=== PATIENT | female | born 1970 | race Caucasian/White ===

== ENCOUNTER 2020-10-24 07:47 | Outpatient (CLI) | payer BC, SELFPAY ==
--- NOTE | 2020-10-24 08:00 | MM_ITS ---
WS: [id number] BILATERAL DIGITAL SCREENING MAMMOGRAPHY WITH CAD CLINICAL INFORMATION: Z12.39 - Encounter for other screening for malignant neop... HISTORY: Screening mammogram. No current complaints. COMPARISON: and TECHNIQUE: Bilateral CC and MLO views. FINDINGS: The breasts are composed of heterogeneous fibroglandular density tissue, which can limit the detectio n of small underlying mass lesions. Dense breast tissue upper outer left breast is unchanged. No susp icious mass, asymmetry, calcifications, or architectural distortion. No evidence of malignancy. MM/[place] [id number] IMPRESSION: BI-RADS: 2-Benign FOLLOW UP: 1 Year Follow-up Recommend return to annual screening mammography.
== END 2020-10-24 07:48 | disposition home or self-care (01) ==
LOC: RADSHAW 07:50
PROVIDERS: PCP Family Medicine; Visit Provider Nurse Practitioner Women's Health
DX: Z12.31 Encounter for screening mammogram for malignant neoplasm of breast (principal)
CPT/HCPCS: 77067

== ENCOUNTER → 2022-07-09 11:56 | Day surgery (SDC) | payer BC, SELFPAY ==
[2022-07-09] MEDS: iron sucrose 200 MG in sodium chloride 0.9% (100 ml) 100 ML 220 MG IV (12:10)
[2022-07-09 12:29] VITALS: BP 122/66; PULSE 76; RESP 18; TEMP 36.1; O2SAT 100
== END ==
PROVIDERS: PCP Family Medicine; Visit Provider Physician Assistant
DX: D50.9 Iron deficiency anemia, unspecified (principal)
CPT/HCPCS: 96365; J1756

== ENCOUNTER → 2022-07-16 11:53 | Day surgery (SDC) | payer BC, SELFPAY ==
[2022-07-16] MEDS: iron sucrose 200 MG in sodium chloride 0.9% (100 ml) 100 ML 220 MG IV (12:02)
[2022-07-16 12:09] VITALS: BP 124/81; PULSE 81; RESP 18; TEMP 36.2; O2SAT 100
== END ==
PROVIDERS: PCP Family Medicine; Visit Provider Physician Assistant
DX: D50.9 Iron deficiency anemia, unspecified (principal)
CPT/HCPCS: 96365; J1756

== ENCOUNTER → 2022-07-23 12:05 | Day surgery (SDC) | payer BC, SELFPAY ==
[2022-07-23] MEDS: iron sucrose 200 MG in sodium chloride 0.9% (100 ml) 100 ML 220 MG IV (12:20)
[2022-07-23 12:21] VITALS: BP 102/65; PULSE 68; RESP 18; TEMP 36.4; O2SAT 100
== END ==
PROVIDERS: PCP Family Medicine; Visit Provider Physician Assistant
DX: D50.9 Iron deficiency anemia, unspecified (principal)
CPT/HCPCS: 96365; J1756

== ENCOUNTER → 2022-07-30 12:00 | Day surgery (SDC) | payer BC, SELFPAY ==
[2022-07-30] MEDS: iron sucrose 200 MG in sodium chloride 0.9% (100 ml) 100 ML 220 MG IV (12:20)
[2022-07-30 12:22] VITALS: BP 112/76; PULSE 73; RESP 18; TEMP 36.2; O2SAT 100
== END ==
PROVIDERS: PCP Family Medicine; Visit Provider Physician Assistant
DX: D50.9 Iron deficiency anemia, unspecified (principal); Z79.899 Other long term (current) drug therapy
CPT/HCPCS: 96365; J1756

== ENCOUNTER 2022-08-02 10:13 | Day surgery (SDC) | payer BC, SELFPAY ==
[2022-08-01 13:44] VITALS: BMI 23.0
[2022-08-02] VITALS (10 sets, daily range): BP systolic 104–126; BP diastolic 66–77; PULSE 55–109; RESP 15–20; TEMP 36.4–36.7; O2SAT 96–100
--- NOTE | 2022-08-02 08:17 | W.PM.OPSFHP ---
Same Day Surgery H&P Indication for Procedure/HPI DATE OF PROCEDURE: August 02, 2022 CHIEF COMPLAINT/INDICATIONFOR SURGICAL PROCEDURE: 52 y.o. with abnormal uterine bleeding, menorrhagia, and anemia, now scheduled for hysteroscopy, endometrial sampling, possible endometrial polypectomy PREOP DIAGNOSIS: abnormal uterine bleeding PLANNED PROCEDURE: Operation Date: 08/02/22 12:00 Proposed Procedures p [Hysteroscopy with Myosure, endometrial sampling 55096, possible endometrial polypectomy 74293,N92.1(Not Applicable) - Fili Ortez MD s Poylpectomy(Not Applicable) - Fili Ortez MD Medications/Allergies* Home Medications Medication Instructions Recorded Confirmed Type iron sucrose 200 mg iron/10 mL 200 mg IV .[id number] 07/30/22 08/01/22 History intravenous solution (Venofer) Allergies/Adverse Reactions Allergy/AdvReac Type Severity Reaction Status Date / Time No Known Allergies Allergy Verified 08/02/22 10:32 Pertinent History/Comorbid Conditions* Medical History (Updated 07/22/22 @ 15:42 by Flii Ortez MD) Galactorrhea (~2017) cream colored- right nipple History of LEEP (loop electrosurgical excision procedure) of cervix complicating [facility] 02/2012--for persistent LGSIL with positive HR-HPV No pertinent past medical history Neg hx: HTN, DM, thyroid, DVT/PE PCP: Dr. Dandre Samaniego Surgical History (Updated 10/13/20 @ 15:46 by Gely Estrada APN, WHLEAH) History of colposcopy [facility] 02/2013 History of tubal ligation 01/2002: Performed at [facility] in [place], [place]. Family History (Updated 10/13/20 @ 15:11 by Anna Marie Todd LPN) Cancer Mother Leukemia Stroke Father Grandmother Denies family history of Diabetes CAD (coronary artery disease) Clotting disorder Dementia Hyperlipidemia Psychiatric illness Chronic kidney disease (CKD) Suicide Anesthesia complication Bleeding disorder Family history of premature coronary artery disease Lung disease Hypertension Pertinent Exam Findings alert, oriented x 3, clear to auscultation bilaterally and regular rate & rhythm Recommendations Surgery/Procedure today Coding Level of Care Code Acute Code for Chg Fwd Diagnoses
--- NOTE | 2022-08-02 08:52 | P.HP_ITS ---
Same Day Surgery H&P Indication for Procedure/HPI DATE OF PROCEDURE: August 02, 2022 CHIEF COMPLAINT/INDICATIONFOR SURGICAL PROCEDURE: 52 y.o. with abnormal uterine bleeding, menorrhagia PREOP DIAGNOSIS: abnormal uterine bleeding PLANNED PROCEDURE: Operation Date: 08/02/22 12:00 Proposed Procedures p [Hysteroscopy with Myosure, endometrial sampling 70614, possible endometrial polypectomy 29592,N92.1(Not Applicable) - Fili Ortez MD s Poylpectomy(Not Applicable) - Fili Ortez MD Medications/Allergies* Home Medications Medication Instructions Recorded Confirmed Type iron sucrose 200 mg iron/10 mL 200 mg IV .[id number] 07/30/22 08/01/22 History intravenous solution (Venofer) Allergies/Adverse Reactions Allergy/AdvReac Type Severity Reaction Status Date / Time No Known Allergies Allergy Verified 08/01/22 13:43 Pertinent History/Comorbid Conditions* Medical History (Updated 07/22/22 @ 15:42 by Fili Ortez MD) Galactorrhea (~2017) cream colored- right nipple History of LEEP (loop electrosurgical excision procedure) of cervix complicating [facility] 02/2012--for persistent LGSIL with positive HR-HPV No pertinent past medical history Neg hx: HTN, DM, thyroid, DVT/PE PCP: Dr. Dandre Samaniego Surgical History (Updated 10/13/20 @ 15:46 by Gely Estrada APN, UNA) History of colposcopy [facility] 02/2013 History of tubal ligation 01/2002: Performed at [facility] in [place], [place]. Family History (Updated 10/13/20 @ 15:11 by Anna Marie Todd LPN) Cancer Mother Leukemia Stroke Father Grandmother Denies family history of Diabetes CAD (coronary artery disease) Clotting disorder Dementia Hyperlipidemia Psychiatric illness Chronic kidney disease (CKD) Suicide Anesthesia complication Bleeding disorder Family history of premature coronary artery disease Lung disease Hypertension Pertinent Exam Findings alert, oriented x 3, clear to auscultation bilaterally and regular rate & rhythm awake, alert Lungs: clear Cor: RRR no m Abd: soft, nontender Recommendations Surgery/Procedure today Coding Level of Care Code Acute Code for Chg Fwd Diagnoses Time Spent (min) 20
[2022-08-02 10:39] LABS: OR HCG Qualitative Urine Negative (Negative)
[2022-08-02] MEDS: sodium chloride 0.9% 1,000 ML 30 ML IV (10:43)
--- NOTE | 2022-08-02 11:41 | W.PM.OPSUD ---
Surgery/Procedure H&P Update DATE OF PROCEDURE: August 02, 2022 DATE H&P PERFORMED: 07/17/22 CHANGES TO PREVIOUS DOCUMENTATION: none PREOP DIAGNOSIS: abnormal uterine bleeding PLANNED PROCEDURE: Operation Date: 08/02/22 12:00 Proposed Procedures p [Hysteroscopy with Myosure, endometrial sampling [address], possible endometrial polypectomy 29879,N92.1(Not Applicable) - Fili Ortez MD s Poylpectomy(Not Applicable) - Fili Ortez MD
--- NOTE | 2022-08-02 12:48 | PC.NURSE ---
Pt arrived to PACU, awake, A&Ox3. Pt denies any pain or nausea at this time. Peripad in place with scant bloody drainage noted.
--- NOTE | 2022-08-02 13:56 | P.ANESASSM_ITS ---
Pre-Anesthetic Assessment Height/Weight: Height 1.6 m Weight 58.967 kg Temp Pulse Resp BP Pulse Ox O2 Del Method 98 F 55 L 16 113/73 100 Room Air 08/02/22 13:22 08/02/22 13:41 08/02/22 13:41 08/02/22 13:41 08/02/22 13:41 08/02/22 13:41 Preop Diagnosis: abnormal uterine bleeding Operation Date: 08/02/22 12:00 Proposed Procedures p [Hysteroscopy with Myosure, endometrial sampling 30736, possible endometrial polypectomy 37278,N92.1(Not Applicable) - Fili Ortez MD s Poylpectomy(Not Applicable) - Fili Ortez MD Familial anesthetic complications: none Was Beta Lisa taken within 24 hours: N/A Was Clonidine taken within 24 hours: N/A Last intake: Intake Last Liquid Date 08/01/22 Last Liquid Time 20:00 Last Solid Date 08/01/22 Last Solid Time 20:00 Social No alcohol and No tobacco Exam alert, oriented x 3, clear to auscultation bilaterally and regular rate & rhythm Airway Submandibular: within normal limits Cervical ROM: within normal limits Mallampati: Class II Dentition: full CV/HEM Anemia Anesthetic Plan ASA status: 2 Anesthesia: General Medications/Allergies Home Medications Medication Instructions Recorded Confirmed Last Taken Type iron sucrose 200 mg iron/10 mL 200 mg IV .[id number] 07/30/22 08/01/22 07/30/22 History intravenous solution (Venofer) Allergies Allergy/AdvReac Type Severity Reaction Status Date / Time No Known Allergies Allergy Verified 08/02/22 10:32 Current Medications Generic Name Dose Route Start Last Admin Trade Name Freq PRN Reason Stop Dose Admin Sodium Chloride 1,000 mls @ 30 mls/hr 08/02/22 10:30 08/02/22 10:43 Sodium Chloride 0.9% IV 08/03/22 10:29 30 mls/hr .Q24H MARILU Administration PFSH Anesthesia Medical History Galactorrhea (~2018) cream colored- right nipple History of LEEP (loop electrosurgical excision procedure) of cervix complicating [facility] 02/2012--for persistent LGSIL with positive HR-HPV No pertinent past medical history Neg hx: HTN, DM, thyroid, DVT/PE PCP: Dr. Dandre Samaniego Surgical History History of colposcopy [facility] 02/2013 History of tubal ligation 01/2002: Performed at [facility] in [place], [place]. Family History Father Stroke Grandmother Stroke Mother Cancer Leukemia Denies family history of Diabetes CAD (coronary artery disease) Clotting disorder Dementia Hyperlipidemia Psychiatric illness Chronic kidney disease (CKD) Suicide Anesthesia complication Bleeding disorder Family history of premature coronary artery disease Lung disease Hypertension Data Anesthesia Cardiac Studies: No Data to Display
--- NOTE | 2022-08-02 15:26 | ANE.PACU2 ---
Inpatient post-anesthesia follow up: Airway intact: Yes Vital signs: Temperature 98 F Pulse Rate 55 Respiratory Rate 16 Blood Pressure 113/73 Pulse Oximetry 100 Oxygen Delivery Me thod Room Air Oxygen Flow Rate Fraction of Inspir ed Oxygen Hydration adequate: Yes Nausea and vomiting: No Pain level: 2 Mental status: Baseline
--- NOTE | 2022-08-02 19:02 | P.OP_ITS ---
Operative Report Date of procedure: August 02, 2022 Pre-op diagnosis: Preop Diagnosis abnormal uterine bleeding Post-op diagnosis: abnormal uterine bleeding normal endometrial cavity Post-op findings: uterus sounded to 8 cm normal endometrial cavity no polyps / fibroids small amount of endometrial tissue Procedure done: hysteroscopy, curettage of uterus Specimens removed/disposition: endometrial curettings Surgeon: Fili Ortez M.D. Estimated blood loss: 3 cc Complications: none Brief History: 52 year old with abnormal uterine bleeding Procedure: Informed consent signed. Patient taken to the operating room.? Anesthesia induced.? Patient was placed in dorsolithotomy position, prepped and draped for hysteroscopy.? A bivalve speculum was placed in the vagina.? The anterior lip of the cervix was grasped with a sharp-toothed tenaculum.? The cervix was serially dilated with Hegar dilators.? .? A hysteroscope was placed into the endometrial cavity.? The endometrial cavity was seen to be normal.? There were no polyps or fibroids.? There was minimal endometrial tissue.? The hysteroscope was then removed.? End ometrial curettage was done with a sharp curette.? Endometrial tissue was sent to pathology. ? The sharp-toothed tenaculum was removed.? There was no bleeding from the endometrial cavity or cervix.? The patient was then placed supine and awakened and taken to the PACU. Postop condition:? stable EBL:? none Sponge and instruments counts were normal x 2 Complications:? none
== END 2022-08-02 14:05 | disposition home or self-care (01) ==
PROVIDERS: PCP Family Medicine; Visit Provider Obstetrics & Gynecology
PROC: 0UDB8ZZ Extraction of Endometrium, Via Natural or Artificial Opening Endoscopic (ICD-10-PCS; CPT 58558; principal; 2022-08-02 12:00)
DX: N93.9 Abnormal uterine and vaginal bleeding, unspecified (principal); D64.9 Anemia, unspecified
CPT/HCPCS: 58558; 81025; 84703; 88305; J1100; J1885; J2405; J2704; J3010; J3490; J7030

== ENCOUNTER → 2022-08-06 11:53 | Day surgery (SDC) | payer BC, SELFPAY ==
[2022-08-06 12:11] VITALS: BP 102/67; PULSE 75; RESP 18; TEMP 36.6; O2SAT 100; BMI 23.0
[2022-08-06] MEDS: iron sucrose 200 MG in sodium chloride 0.9% (100 ml) 100 ML 220 MG IV (13:00)
== END ==
LOC: GILAB 11:54
PROVIDERS: PCP Family Medicine; Visit Provider Physician Assistant
DX: D50.9 Iron deficiency anemia, unspecified (principal); Z79.899 Other long term (current) drug therapy
CPT/HCPCS: 96365; J1756

== ENCOUNTER → 2022-10-11 11:16 | Outpatient (BNVA) | payer BC, SELFPAY | PROVIDERS: PCP Family Medicine; Visit Provider Obstetrics & Gynecology | DX: D64.9 Anemia, unspecified (principal) | CPT/HCPCS: 85025 ==

== ENCOUNTER 2022-12-04 10:00 | Outpatient (CLI) | payer BC, SELFPAY ==
--- NOTE | 2022-12-04 10:05 | MM_ITS ---
WS: [id number] VIEWS: MLO and CC views both breasts. 3D digital tomosynthesis is also included in this exam. Comparison made with prior exam of 06/26/2013, 12/16/2014, 06/03/2017, 11/03/2020,. Findings: Partially obscured grouped punctate microcalcifications are noted in the upper outer quadrant of the LEFT breast at mid to posterior depth. This is probably in the 2 to 3 o'clock position. No architectu ral distortion or discrete mass is visualized. Magnification compression spot imaging of the LEFT leyla ast in the CC, MLO and 90 degree lateral projections to include tomography would be indicated for fur ther work-up. There are no new findings in the RIGHT breast. The breasts are extremely dense which lo wers the sensitivity of mammography. Impression: MM/[place] [id number] BI-RADS: 0-Incomplete: Need additional imaging evaluation FOLLOW-UP: See Report This mammogram was also analyzed by the Computer Aided Detection System R2 Imag e Labor Conciliator.
== END 2022-12-04 10:01 | disposition home or self-care (01) ==
LOC: RAD 10:03 → MOBLMAM 10:04
PROVIDERS: PCP Family Medicine; Visit Provider Obstetrics & Gynecology
DX: Z12.31 Encounter for screening mammogram for malignant neoplasm of breast (principal)
CPT/HCPCS: 77063; 77067

== ENCOUNTER 2022-12-21 09:51 | Outpatient (CLI) | payer BC, SELFPAY ==
--- NOTE | 2022-12-21 10:24 | MM_ITS ---
WS: [id number] VIEWS: Compression spot imaging as well as a 90 degree lateral view of the LEFT breast to include tiki ography was obtained. Comparison made with prior exam of screening study of 12/04/2022. Findings: Compression spot imaging in the CC and MLO views as well as the 90 degree lateral projection demonstr ates several scattered round microcalcifications. No suspicious clustering of microcalcification or a rchitectural distortion was noted. No discrete suspicious mass. The LEFT breast is heterogeneously de nse which may obscure small masses. Impression: MM/[place] [id number] BI-RADS: 2-Benign finding. FOLLOW-UP: 1 Year Follow-up This mammogram was also analyzed by the Computer Aided Detection System R2 Imag e Drywaller.
== END 2022-12-21 09:52 | disposition home or self-care (01) ==
PROVIDERS: PCP Family Medicine; Visit Provider Obstetrics & Gynecology
DX: R92.8 Other abnormal and inconclusive findings on diagnostic imaging of breast (principal)
CPT/HCPCS: 77061; G0279

== ENCOUNTER → 2024-08-10 13:52 | Outpatient (BNVA) | payer BC, SELFPAY | PROVIDERS: PCP Family Medicine; Visit Provider Podiatrist Foot & Ankle Surgery | DX: M79.671 Pain in right foot (principal); M79.672 Pain in left foot; M20.11 Hallux valgus (acquired), right foot; M21.611 Bunion of right foot | CPT/HCPCS: 73630 ==

== ENCOUNTER 2024-08-17 11:35 | Outpatient (CLI) | payer BC, SELFPAY ==
--- NOTE | 2024-08-17 11:40 | MM_ITS ---
WS: [id number] BILATERAL SCREENING DIGITAL TOMOSYNTHESIS MAMMOGRAM WITH CAD HISTORY: SCREENING COMPARISON: 12/21/2022, 12/04/2022, 10/24/2020 Bilateral CC and MLO views with tomosynthesis and synthetic mammography submitted. Computer aided detection analyzed. Breast composition: The breasts are heterogeneously dense, which may obscure small masses. No suspicious masses, microcalcifications or architectural distortion. Stable asymmetries in each breast. MM/MM scr tomosynthesis [id number] IMPRESSION: BI-RADS: 2 - Benign FOLLOW UP: 1 Year Follow-up
== END 2024-08-17 11:36 | disposition home or self-care (01) ==
LOC: RAD 11:35
PROVIDERS: PCP Family Medicine; Visit Provider Family Medicine
DX: Z12.31 Encounter for screening mammogram for malignant neoplasm of breast (principal); R92.333 Mammographic heterogeneous density, bilateral breasts; N64.89 Other specified disorders of breast
CPT/HCPCS: 77063; 77067

== ENCOUNTER 2024-10-19 14:23 | Outpatient (CLI) | payer BC, SELFPAY ==
--- NOTE | 2024-10-19 14:32 | MR_ITS ---
WS: [id number] MRI CERVICAL SPINE NONCONTRAST HISTORY: CERVICALGIA, RIGHT arm pain for several months. COMPARISON: None available. Technique: Multiplanar, multisequence noncontrast imaging of the cervical spine. Straightening of the normal cervical lordosis. Slight retrolisthesis of C5 and C6. No fracture or marrow edema. Signal within the cervical cord is normal. Visualized posterior fossa is unremarkable. Craniocervical junction, C1 and C2 relationship, odontoid process and soft tissues are normal. C2-C3: Normal. C3-C4: Mild RIGHT foraminal stenosis secondary to a small osteophyte. C4-C5: Very mild facet joint arthritis. Small bilateral foraminal osteophytes. Mild LEFT foraminal stenosis. C5-C6: Mild effacement of ventral CSF, osteophytic ridging and mild facet arthritis. Mild central and foraminal stenosis. Focal disc osteophyte complex in the RIGHT foramen causing slightly greater narrowing of the RIGHT foramen. C6-C7: Mild osteophytic ridging with disc bulging and facet arthritis. Mild LEFT foraminal narrowing due to an osteophyte. C7-T1: Normal. Paraspinal soft tissue are normal. MR/MR cervical spin wo con* [id number] IMPRESSION: 1. Mild degenerative disc disease and facet arthropathy. No high-grade central stenosis. 2. C5-6: Focal RIGHT foraminal disc osteophyte complex narrowing the foramen a nd contacting the C6 nerve root. Mild central stenosis. 3. Mild RIGHT foraminal stenosis at C3-4 and mild LEFT foraminal stenosis at C 4-5 and C6-7.
== END 2024-10-19 14:24 | disposition home or self-care (01) ==
LOC: RAD 14:26
PROVIDERS: PCP Family Medicine; Visit Provider Family Medicine
DX: M47.812 Spondylosis without myelopathy or radiculopathy, cervical region (principal); M50.30 Other cervical disc degeneration, unspecified cervical region; M48.02 Spinal stenosis, cervical region; M25.78 Osteophyte, vertebrae
CPT/HCPCS: 72141

== ENCOUNTER 2025-03-12 09:11 | Day surgery (SDC) | payer BC, SELFPAY ==
[2025-03-12] VITALS (7 sets, daily range): BP systolic 95–118; BP diastolic 56–82; PULSE 62–91; RESP 15–20; TEMP 36.4–36.6; O2SAT 96–100; BMI 23.9
--- NOTE | 2025-03-12 07:10 | P.HP_ITS ---
Providers/Chief Complaint Primary Care Provider: Dandre Samaniego MD Chief Complaint: M12.611 History of Present Illness Pita Fuller is a 54 year old female presenting to clinic for surgical consult for right foot bunionectomy. Patient reports that her only request is to have surgery before the end of the year. She states that she is experiencing pain daily to right foot. Review of Systems General: Reports: 10 or more systems reviewed and unremarkable except in HPI and below Const: Denies: fever(s) or chills Eyes: Denies: change in vision Card: Denies: chest pain or palpitations Resp: Denies: dyspnea or productive cough GI: Denies: abdominal pain, nausea or vomiting : Denies: flank pain Musc: Reports: extremity pain, joint pain, joint stiffness, limited range of motion and deformity Skin/Breast: Reports: skin tenderness; Denies: rash Neuro: Reports: difficulty walking; Denies: numbness in extremities, sensory changes or frequent falls Psych: Denies: suicidal ideation Billy/Lymph: Denies: easy bruising Medications/Allergies Home Medications ?Medication ?Instructions ?Recorded ?Confirmed ?Last Taken ?Type levonorgestrel (Mirena) 1 device intrauterine .8 yea rs 12/18/22 03/12/25 03/11/25 History estradiol 0.5 mg tablet 0.5 mg PO DAILY #90 tabs 07/3103/12/25 03/11/25 Rx gabapentin 300 mg capsule 300 mg PO BID 11/09/2403/1203/11/25 History spironolactone 50 mg tablet See Rx Instructions .Route 02/19/25 03/12/25 03/11/25 Rx .COMPLEX #180 tabs hydrocodone 10 mg-acetaminophen 1 tab PO Q6H PRN pain 7 days #28 03/12/25 Unknown Rx 325 mg tablet tabs Allergies Allergy/AdvReac Type Severity Reaction Status Date / Time No Known Allergies Allergy Verified 03/12/25 09:18 PFSH PFSH: Medical History (Updated 03/12/25 @ 07:13 by Josemanuel Del Rosario DPM) Galactorrhea (~2018) cream colored- right nipple History of LEEP (loop electrosurgical excision procedure) of cervix complicating [facility] 02/2012--for persistent LGSIL with positive HR-HPV No pertinent past medical history Neg hx: HTN, DM, thyroid, DVT/PE PCP: Dr. Dandre Samaniego Surgical History History of tubal ligation 01/2002: Performed at [place] [facility] in [place], [place]. History of colposcopy [facility] 02/2013 Family History Father Stroke Grandmother Stroke Mother Cancer Leukemia Denies family history of Diabetes CAD (coronary artery disease) Clotting disorder Dementia Hyperlipidemia Psychiatric illness Chronic kidney disease (CKD) Suicide Anesthesia complication Bleeding disorder Family history of premature coronary artery disease Lung disease Hypertension Social History Smoking and tobacco/nicotine status: never used tobacco/nicotine Physical Exam Narrative: EXAM NARRATIVE: Const: COMMON NORMALS: no acute distress, p atient oriented x3 and alert HENMT: COMMON NORMALS: no rmocephalic HEAD & SCALP: normoceph alic Eye: COMMON NORMALS: Eq ual, round and alyssia ctive pupils prese nt, EOMs intact bi laterally and conj unctivae normal C ONJUNCTIVA: Yes co njunctivae normal PUPIL: Yes Equal, round and reactiv e pupils present Chest: CHEST: Yes Symmetr ical chest wall ri se Resp: COMMON NORMALS: no rmal respiratory e ffort, No use of a ccessory muscles a nd clear to auscul tation bilaterally EFFORT & INSPECT ION: Yes able to s peak in complete s entences and Yes s ymmetric chest mov ement AUSCULTATIO N: clear to auscul tation bilaterally Cardio: COMMON NORMALS: re gular rate, regula r rhythm, No murmu rs present (Cardio ) and Peripheral p ulses 2+ throughou t RATE: regular r ate RHYTHM: regul ar rhythm PERIPHE RAL PULSES: Periph eral pulses 2+ thr oughout Extremity: COMMON NORMALS: ca pillary refill nor mal and no calf te nderness GENERAL: Yes edema LEFT L OWER EXTREMITY: Ye s ankle joint (No pain at lateral co llateral ankle lig aments. Negative anterior drawer.) Left ankle: Yes in spection (No abras ion or laceration) , Yes palpation (P ain to palpation m edial and lateral malleolus.), Yes R OM (Guarded second bonnie to pain), Yes neurovascular exam (Dorsalis pedis a nd posterior tibia l arteries palpabl e) and Yes other a nd Yes foot & digi ts OTHER: Hallu x valgus and bunio n deformity bilate rally tenderness p alpation at metata rsal phalangeal marilyn int. Range of mot ion of first metat arsophalangeal carley nt is 60 degrees b ilaterally. Left and right tailor's bunion without pa in to palpation at the lateral aspec t of the left fift h metatarsal phala ngeal joint. Ivone ertoe of the left fifth digit with t riplane deformity, deviates medially . Neuro: COMMON NORMALS: pa tient oriented x3 SENSORIUM/ORIENTA TION: Yes alert O THER: Protective sensation intact to light touch of the left foot. Psych: COMMON NORMALS: me ntal status grossl y normal and coope rative Skin: COMMON NORMALS: no wounds NARRATIVE SKIN EXAM: No w ounds to the lower extremities. G ENERAL SKIN EXAM: no erythema TRAUM A: no lacerations HAIR: general thi nning A&P Assessment and plan 1. Right foot pain: 2. Bunion, right: Plan: Right foot x-ray shows increased first metatarsal angle at 17 degrees with hallux valgus deformity present. No arthrosis. No acute osseous injury. 54-year-old female with a history of bunion pain presenting with hallux valgus. The bunion is notably severe with a 17-degree deformity. Conservative management has been attempted but remains inadequate in alleviating pain and discomfort, indicating that surgical correction may be necessary for future symptom relief and structural foot alignment. 1. Hallux Valgus Bunion The patient has a severe bunion measuring 17 degrees. Conservative measures advised include wearing wider footwear and using orthotics. Meloxicam is prescribed to manage pain and inflammation. The option of a Lapidus bunionectomy has been discussed, detailing the surgical process and potential risks, with long-term symptom relief and correction as goals. Further monitoring of the condition is suggested to evaluate the need for surgical intervention based on symptom persistence and lifestyle impact. - Wear shoes with wider toe boxes to alleviate bunion pain. - Take Meloxicam for 30 days, followed by as needed, to manage inflammation. Always take with food. - Monitor symptoms and avoid surgical intervention until after summer unless necessary. - Plan for possible surgery in the winter if bunion pain persists. - Discuss with family to ensure support during recovery if surgery is pursued. Bunion management requires a multifaceted approach given its progressive nature and severity at 17 degrees. Current symptom management strategies are focused on adapting footwear and utilizing NSAIDs to alleviate pain and swelling. Considering the patient?s reported severity and functional limitation, a surgical approach such as a Lapidus bunionectomy is a viable option. This surgical technique addresses root deformities and provides potential long-term resolution, albeit with inherent risks such as nonunion. Since surgical recovery could impact the patient's quality of life during summer, delaying definitive intervention until later months could be beneficial. Continuous monitoring and symptom management remain critical until surgical intervention is pursued. Interim update 02/02/2025 Patient has failed to respond to conservative measures of wide accommodative shoes anti-inflammatories padding and spacing she continues to have persistent pain at her right bunion deformity is requesting surgical consultation. Recommended a Lapidus and [place] bunionectomy. I reviewed at length with the patient, the risks, potential complications, benefits, alternatives, expectations, and typical outcomes associated with the surgery. The risks and potential complications were explained in detail, including but not limited to infection, wound dehiscence or soft tissue complications, bleeding and hematoma, chronic edema, neuritis or nerve damage producing numbness or chronic pain, CRPS, failure to relieve pain or worsening pain, thick / painful / unsightly scar, limited motion / stiffness, malposition, delayed union, malunion, or nonunion, fracture, reaction to implants, anesthetic complications, venous thromboembolism, and deformity recurrence. I discussed the notion of no regrets with the patient as it pertains to complications and outcomes. The patient seemed to understand the nature of the proposed care and required convalescence. They asked appropriate questions, answered to their satisfaction. They are aware no guarantees can be made as to a satisfactory outcome and they understand there may be other possible unforeseen complications or outcomes not listed here that will be treated accordingly if they arise. There were no written or implied guarantees given to the patient. They gave informed consent to proceed. Scheduled for outpatient surgery February 10 right bunionectomy. General LMA, supine, gurney, mini C arm, TPS PDMP PDMP Reviewed: Last Reviewed 03/12/25 08:19 EST by Josemanuel Del Rosario DPM Coding Level of Care Code Acute Code for Chg Fwd Diagnoses Right foot pain M79.671 Bunion, right M21.611
--- NOTE | 2025-03-12 07:14 | W.PM.OPSUD ---
Surgery/Procedure H&P Update DATE OF PROCEDURE: March 12, 2025 DATE H&P PERFORMED: 03/12/25 H&P UPDATE INFORMATION: I have reviewed H&P completed within last 30 days, I have examined patient prior to procedure, No changes to prior documentation, H&P is in [facility] EMR on date indicated and Risks and benefits of the procedure reviewed PLANNED PROCEDURE: Operation Date: 03/12/25 10:55 Proposed Procedures p Bunionectomy Lapidus(Right) - Josemanuel Del Rosario DPM s Pete Osteotomy(Right) - Josemanuel Del Rosario DPM
--- NOTE | 2025-03-12 10:01 | P.ANESASSM_ITS ---
Pre-Anesthetic Assessment Height/Weight: Height 5 ft 3 in Weight 135 lb Temp Pulse Resp BP Pulse Ox O2 Del Method 97.6 F 83 18 117/68 98 Room Air 03/12/25 09:23 03/12/25 09:23 03/12/25 09:23 03/12/25 09:23 03/12/25 09:23 03/12/25 09:23 Preop Diagnosis: Right bunion Operation Date: 03/12/25 10:55 Proposed Procedures p Bunionectomy Lapidus(Right) - Josemanuel Del Rosario DPM s Pete Osteotomy(Right) - Josemanuel Del Rosario DPM Was Beta Lisa taken within 24 hours: N/A Was Clonidine taken within 24 hours: N/A Last intake: Intake Last Liquid Date 03/11/25 Last Liquid Time 20:30 Last Solid Date 03/11/25 Last Solid Time 17:30 Social Tobacco and No alcohol Vapes nicotine Exam alert, oriented x 3, clear to auscultation bilaterally and regular rate & rhythm Airway Submandibular: Other (Prior neck surgery) Cervical ROM: within normal limits Mallampati: Class II Dentition: full Anesthetic Plan ASA status: 2 Anesthesia: Choice Other: No prior issues with anesthesia NPO since yesterday evening Patient vapes nicotine Denies any cardiac issues Prior thyroid surgery METs greater than 4 Medications/Allergies Home Medications ?Medication ?Instructions ?Recorded ?Confirmed ?Last Taken ?Type levonorgestrel (Mirena) 1 device intrauterine .8 yea rs 12/18/22 03/12/25 03/11/25 History estradiol 0.5 mg tablet 0.5 mg PO DAILY #90 tabs 07/3103/12/25 03/11/25 Rx gabapentin 300 mg capsule 300 mg PO BID 11/09/2403/1203/11/25 History spironolactone 50 mg tablet See Rx Instructions .Route 02/19/25 03/12/25 03/11/25 Rx .COMPLEX #180 tabs hydrocodone 10 mg-acetaminophen 1 tab PO Q6H PRN pain 7 days #28 03/12/25 Unknown Rx 325 mg tablet tabs Allergies Allergy/AdvReac Type Severity Reaction Status Date / Time No Known Allergies Allergy Verified 03/12/25 09:18 Current Medications Generic Name Dose Route Start Last Admin Trade Name Freq PRN Reason Stop Dose Admin Sodium Chloride 1,000 mls @ 30 mls/hr 03/12/25 09:15 03/12/25 09:37 Sodium Chloride 0.9% IV 03/13/25 09:14 30 mls/hr .Q24H MARILU Administration PFSH Anesthesia Medical History (Updated 03/12/25 @ 07:13 by Josemanuel Del Rosario DPM) Galactorrhea (~2018) cream colored- right nipple History of LEEP (loop electrosurgical excision procedure) of cervix complicating [facility] 02/2012--for persistent LGSIL with positive HR-HPV No pertinent past medical history Neg hx: HTN, DM, thyroid, DVT/PE PCP: Dr. Dandre Samaniego Surgical History History of tubal ligation 01/2002: Performed at [facility] in [place], [place]. History of colposcopy [facility] 02/2013 Family History Father Stroke Grandmother Stroke Mother Cancer Leukemia Denies family history of Diabetes CAD (coronary artery disease) Clotting disorder Dementia Hyperlipidemia Psychiatric illness Chronic kidney disease (CKD) Suicide Anesthesia complication Bleeding disorder Family history of premature coronary artery disease Lung disease Hypertension Social History Smoking and tobacco/nicotine status: never used tobacco/nicotine
[2025-03-12] MEDS: ceFAZolin 2,000 mg SDV 2000 MG IVP (11:03)
[2025-03-12] MEDS: tranexamic acid 1,000 mg/10mL SDV 1000 MG XX (11:17)
--- NOTE | 2025-03-12 11:46 | XR_ITS ---
WS: [id number] XR foot RT 2V [id number] REASON FOR EXAM: SURGERY BUNION FINDINGS: Osteotomy of the first proximal phalanx with screw fixation. Surgical appliances intact and in proper position and alignment. Osteotomy alignment is appropriate. XR/XR foot RT 2V [id number] IMPRESSION: Osteotomy with screw fixation without abnormality.
[2025-03-12] MEDS: BUPivacaine liposome 13.3 mg/mL SDV 20 mL 266 MG (12:11)
[2025-03-12] MEDS: BUPivacaine 0.5% INJ 30 mL (12:11)
--- NOTE | 2025-03-12 12:27 | P.BOP_ITS ---
Date of Procedure: 06/21/23 Surgeon: Josemanuel Del Rosario DPM Welding Equipment Sales Representative(s): Stephanie Barker Alex Procedure(s) performed: Lapidus [place] bunionectomy, right foot. Findings of the procedure(s): Right foot bunion. Estimated blood loss: 2 mL Specimen(s) removed: No specimens Post-operative diagnosis: Right bunion
--- NOTE | 2025-03-12 12:28 | P.OP_ITS ---
Operative Report Date of procedure: March 12, 2025 Pre-op diagnosis: Bunion, right foot M21.611 Foot pain, right M79.671 Post-op diagnosis: Bunion, right foot M21.611 Foot pain, right M79.671 Procedure done: 1) right Lapidus bunionectomy. CPT code 58323 2) right Pete osteotomy. CPT code 39030 Implants: [employer] primary Lapidus plate with 3.5 mm locking and nonlocking screws. [place] cannulated 4 mm screw and [place] cannulated 2 mm headless screw, 3-0 Vicryl, 4-0 Vicryl, 4-0 nylon Specimens removed/disposition: No specimens removed Pathology: No pathology Surgeon: Josemanuel Del Rosario DPM Streaming Media Specialist: MCKAYLA Gomez Haley Estimated blood loss: 2 60 IV fluids: See intraoperative documentation Urine output: No urine output Complications: no complications Brief History: Patient has failed to respond to conservative measures of wide accommodative shoes anti-inflammatories padding and spacing she continues to have persistent pain at her right bunion deformity is requesting surgical consultation. Recommended a Lapidus and [place] bunionectomy. I reviewed at length with the patient, the risks, potential complications, benefits, alternatives, expectations, and typical outcomes associated with the surgery. The risks and potential complications were explained in detail, including but not limited to infection, wound dehiscence or soft tissue complications, bleeding and hematoma, chronic edema, neuritis or nerve damage producing numbness or chronic pain, CRPS, failure to relieve pain or worsening pain, thick / painful / unsightly scar, limited motion / stiffness, malposition, delayed union, malunion, or nonunion, fracture, reaction to implants, anesthetic complications, venous thromboembolism, and deformity recurrence. I discussed the notion of no regrets with the patient as it pertains to complications and outcomes. The patient seemed to understand the nature of the proposed care and required convalescence. They asked appropriate questions, answered to their satisfaction. They are aware no guarantees can be made as to a satisfactory outcome and they understand there may be other possible unforeseen complications or outcomes not listed here that will be treated accordingly if they arise. There were no written or implied guarantees given to the patient. They gave informed consent to proceed. Procedure: Under mild sedation the patient was brought to the operating room and remained on the gurney in supine position. A timeout was performed. Anesthesia was then administered by the anesthesia service. Local anesthesia was injected by myself consisting of 20 cc of 0.5% Marcaine plain and 20 cc of Exparel in a right Benito block fashion. Well-padded pneumatic tourniquet applied to the right ankle. The right lower extremity was scrubbed, prepped and draped utilizing normal aseptic technique. Right foot and ankle were exanguinated with an Esmarch bandage and tourniquet inflated to 250 mmHg. Attention was directed to the dorsal medial aspect of the right first metatarsal and first metatarsophalangeal joint where 2 linear longitudinal incision was made medial and parallel to the extensor hallucis longus tendon through skin with dissection carried down through subcutaneous tissue to the layer periosteum utilizing a combination of sharp and blunt technique. Care was taken to retract and preserve neurovascular and tendinous structures. All bleeders were ligated and cauterized as necessary. Periosteum incision was performed and dissection was carried to the proximal phalanx base and also the first metatarsal base and medial cuneiform, Lapidus bunionectomy site was disarticulated with all capsular and ligamentous soft tissue attachments sharply released and a bone resurfacing tool to you remove all cartilage surface of the base of the first metatarsal and distal aspect of the medial cuneiform with attention to remove more laterally as to help reduce intermetatarsal angle, the incision was flushed with saline solution, subchondral drilling performed with fenestrating drill bit at the base of the first metatarsal and medial cuneiform. The first metatarsal was held near parallel to the second metatarsal reducing the percent metatarsal angle and a homerun screw from dorsal distal to proximal plantar with [employer] 4 mm cannulated screw with excellent bony apposition and compression noted followed by a locking plate medially with a Lapidus plate utilizing standard AO technique with 3.5 mm locking and nonlocking screws purchasing intermediate cuneiform and for additional stability. Pete osteotomy was then performed with a sagittal saw maintaining a lateral hinge and fixated utilizing a [place] [employer] 2 mm headless screw with excellent bony apposition and compression noted in rectus first ray, medial eminence was transected of the first metatarsal head and all rough edges smoothed, capsular debulking performed sharply with pickups and a #15 blade. Incisions irrigated saline solution and anatomically reduced bunion was appreciated. AP oblique and lateral views with intraoperative C-arm confirmed excellent placement of hardware without violating adjacent joints. The incisions were irrigated with further saline solution and closed in a layered fashion with periosteum and joint capsule reapproximated with 3-0 Vicryl, subcutaneous tissue with 4-0 Vicryl and skin with 4-0 nylon. Incisions were dressed with Xeroform, sterile 4 x 4 gauze, Kerlix, Edmundo wrap followed application of a cam boot to the right lower extremity. Tourniquet was deflated and a prompt hyperemic response is noted to the distal digits of the right foot. Patient tolerated the procedure and anesthesia well and was transferred to the PACU with vital signs stable and vascular status intact. Following a period of postoperative monitoring show we discharged home without home care instructions and scheduled follow-up.
--- NOTE | 2025-03-12 12:48 | ANE.PACU2 ---
Inpatient post-anesthesia follow up: Airway intact: Yes Vital signs: Temperature 97.5 F Pulse Rate 75 Respiratory Rate 16 Blood Pressure 108/70 Pulse Oximetry 98 Oxygen Delivery Me thod Room Air Oxygen Flow Rate Fraction of Inspir ed Oxygen Hydration adequate: Yes Nausea and vomiting: No Pain level: 1 Mental status: Baseline
== END 2025-03-12 13:50 | disposition home or self-care (01) ==
PROVIDERS: PCP Family Medicine; Visit Provider Podiatrist Foot & Ankle Surgery
PROC: (CPT 28297; principal; 2025-03-12 10:45)
PROC: (CPT 28298; 2025-03-12 10:45)
DX: M21.611 Bunion of right foot (principal); Z79.891 Long term (current) use of opiate analgesic
CPT/HCPCS: 28297; 28298; 73620; 76000; C1713; J0666; J0690; J2250; J2704; J3490; J7030; J9999

== ENCOUNTER → 2025-03-25 14:37 | Outpatient (BNVA) | payer BC, SELFPAY | PROVIDERS: PCP Family Medicine; Visit Provider Podiatrist Foot & Ankle Surgery | DX: Z98.890 Other specified postprocedural states (principal) | CPT/HCPCS: 73630 ==